=== PATIENT | female | born 1945 | race Caucasian/White ===

== ENCOUNTER 2016-07-30 06:36 | Day surgery (SDC) | payer MEDICARE ==
[~2016-07-30 06:36] MED LIST: IV START KIT ONE; LACTATED RINGERS 1,000 ML ONE
[2016-07-30] MEDS ORDERED: LACTATED RINGERS 1,000 ML IV SCH (06:45)
[2016-07-30] MEDS ORDERED: MIDAZOLAM HCL 5 MG/5 ML VIAL IV PRN (06:45)
[2016-07-30] MEDS ORDERED: FENTANYL 250 MCG/5 ML AMP IV PRN (06:45)
[2016-07-30] MEDS ORDERED: MIDAZOLAM HCL 5 MG/5 ML VIAL ONE (07:56)
[2016-07-30] MEDS ORDERED: FENTANYL 5 ML ONE (07:57)
== END 2016-07-30 09:25 | disposition home or self-care (01) ==
LOC: SDC 06:36
PROVIDERS: ATTEND Internal Medicine Gastroenterology
PROC: 0DJD8ZZ Inspection of Lower Intestinal Tract, Via Natural or Artificial Opening Endoscopic (ICD-10-PCS; principal; 2016-07-30)
DX: K64.1 Second degree hemorrhoids (principal); K57.30 Diverticulosis of large intestine without perforation or abscess without bleeding; Q43.8 Other specified congenital malformations of intestine; I10 Essential (primary) hypertension; E03.9 Hypothyroidism, unspecified; Z88.2 Allergy status to sulfonamides
CPT/HCPCS: 45378; J3010; J2250; J7120